=== PATIENT | female | born 1990 ===

== ENCOUNTER 2018-10-20 05:20 | Emergency (ER) | payer OTHER ==
[2018-10-20 05:38] VITALS: BMI 38.8
--- NOTE | 2018-10-20 06:07 | ED PDOC ---
Arrival/HPI - General Chief Complaint: Wound Check Time Seen by Provider: 10/20/18 05:37 Historian: Patient - History of Present Illness Narrative History of Present Illness (Text): 10/20/18 06:02 Dahiana Oconnor is a 28 year old female who presents to the Emergency department complaining of some redness to surgical site. Patient state she recently underwent a on 10/09/2018 and developed an area of redness/irritation to the surgical site over the past 3-4 days. Patient noted small dot of bleeding along sutured line which resolved on its own possibly from clothes rubbing the area. Patient states she is scheduled to follow-up with her OBGYN in 2 days. Patient denies any fever, chills, abdominal pain, vomiting, diarrhea, urinary symptoms, or any other complaints. Symptom Onset: Gradual Symptom Course: Unchanged Activities at Onset: Light Context: Home Past Medical History - Provider Review Nursing Documentation Reviewed: Yes - Infectious Disease Hx of Infectious Diseases: None - Cardiac Hx Cardiac Disorders: No - Pulmonary Hx Respiratory Disorders: No - Neurological Hx Neurological Disorder: No - HEENT Hx HEENT Disorder: No - Renal Hx Renal Disorder: No - Endocrine/Metabolic Hx Endocrine Disorders: No - Hematological/Oncological Hx Blood Disorders: No - Integumentary Hx Dermatological Disorder: No - Musculoskeletal/Rheumatological Hx Musculoskeletal Disorders: No Hx Arthritis: No - Gastrointestinal Hx Gastrointestinal Disorders: No - Genitourinary/Gynecological Hx Genitourinary Disorders: No - Psychiatric Hx Psychophysiologic Disorder: No Hx Substance Use: No - Surgical History Hx Section: Yes - Anesthesia Hx Anesthesia: Yes Hx Anesthesia Reactions: No Hx Malignant Hyperthermia: No Family/Social History - Physician Review Nursing Documentation Reviewed: Yes Family/Social History: Unknown Family HX Smoking Status: Never Smoked Hx Alcohol Use: Yes Frequency of alcohol use: Socially Hx Substance Use: No Allergies/Home Meds Allergies/Adverse Reactions: Allergies No Known Allergies Allergy (Verified 10/20/18 06:00) Review of Systems - Physician Review All systems were reviewed & negative as marked: Yes - Review of Systems Constitutional: Normal. absent: Fevers Eyes: Normal ENT: Normal Respiratory: Normal. absent: SOB, Cough Cardiovascular: Normal. absent: Chest Pain Gastrointestinal: Normal. absent: Abdominal Pain, Diarrhea, Nausea, Vomiting Genitourinary Female: Normal. absent: Dysuria, Frequency, Hematuria, Urine Output Changes Musculoskeletal: Normal. absent: Back Pain, Neck Pain Skin: Other (+area of redness to surgical site) Neurological: Normal. absent: Headache, Dizziness Endocrine: Normal Hemo/Lymphatic: Normal Psychiatric: Normal Physical Exam Vital Signs Reviewed: Yes Vital Signs Temp Pulse Resp BP Pulse Ox 10/20/18 05:58 98.4 F 72 16 149/74 99 Temperature: Afebrile Blood Pressure: Normal Pulse: Regular Respiratory Rate: Normal Appearance: Positive for: Well-Appearing, Non-Toxic, Comfortable Pain Distress: None Mental Status: Positive for: Alert and Oriented X 3 - Systems Exam Head: Present: Atraumatic, Normocephalic Pupils: Present: PERRL Extroacular Muscles: Present: EOMI Conjunctiva: Present: Normal Mouth: Present: Moist Mucous Membranes Neck: Present: Normal Range of Motion Respiratory/Chest: Present: Clear to Auscultation, Good Air Exchange. No: Respiratory Distress, Accessory Muscle Use Cardiovascular: Present: Regular Rate and Rhythm, Normal S1, S2. No: Murmurs Abdomen: Present: Other (Localized area of minimal erythema/skin hypertrophy at surgical site, no dehiscence noted/sutured site healed/small dot of dried blood at suture site secondary to abrasion). No: Tenderness (No palpable tenderness), Distention, Peritoneal Signs Back: Present: Normal Inspection Upper Extremity: Present: Normal Inspection. No: Cyanosis, Edema Lower Extremity: Present: Normal Inspection. No: Edema Neurological: Present: GCS=15, CN II-XII Intact, Speech Normal Skin: Present: Warm, Dry, Normal Color. No: Rashes Psychiatric: Present: Alert, Oriented x 3, Normal Insight, Normal Concentration Medical Decision Making ED Course and Treatment: 10/20/18 06:02 Impression: 28 year old female complaining of an area of redness to surgical site with some associated irritation x3-4 days. Plan: -- Keflex -- Reassess and disposition Progress Notes: - Scribe Statement The provider has reviewed the documentation as recorded by the Chalino Arana Provider Scribe Attestation: All medical record entries made by the Scribe were at my direction and personally dictated by me. I have reviewed the chart and agree that the record accurately reflects my personal performance of the history, physical exam, medical decision making, and the department course for this patient. I have also personally directed, reviewed, and agree with the discharge instructions and disposition. Disposition/Present on Arrival - Present on Arrival Any Indicators Present on Arrival: No History of DVT/PE: No History of Uncontrolled Diabetes: No Urinary Catheter: No History of Decub. Ulcer: No History Surgical Site Infection Following: None - Disposition Have Diagnosis and Disposition been Completed?: Yes Diagnosis: Skin hypertrophy, Skin inflammation, Abrasion Disposition: HOME/ ROUTINE Disposition Time: 06:22 Patient Plan: Discharge Patient Problems: Current Active Problems Problem Status Onset Skin hypertrophy Acute Skin inflammation Acute Condition: STABLE Additional Instructions: Keep area clean and dry/avoid skin irritation/tight clothing rubbing the area/medication as prescribed/follow up with your curtain inspector in 2 days as scheduled Prescriptions: Cephalexin [cephalexin] 500 mg PO BID #14 cap Forms: [employer] (Korean)
[2018-10-20 06:18] VITALS: RESP 16; TEMP 98.4
[2018-10-20] MEDS ORDERED: Bacitracin 500 Units/gm Oint Foilpak UD ONE (06:30)
[2018-10-20 06:55] VITALS: BP 132/70; PULSE 70; O2SAT 98
== END 2018-10-20 06:35 | disposition home or self-care (01) ==
LOC: ED 05:20
DX: L90.9 Atrophic disorder of skin, unspecified (principal); T14.8XXA Other injury of unspecified body region, initial encounter; X58.XXXA Exposure to other specified factors, initial encounter; L08.9 Local infection of the skin and subcutaneous tissue, unspecified